=== PATIENT | female | born 1975 | race Caucasian/White ===

== ENCOUNTER 2020-05-04 15:38 | Emergency (ER) | payer OTHER ==
[2020-05-04] MEDS ORDERED: NORFLEX 100 MG100 MG PO (20:42)
[2020-05-04] MEDS ORDERED: LODINE CAP 300300 MG PO (20:42)
== END 2020-05-04 20:50 | disposition home or self-care (01) ==
LOC: ER1 15:38
DX: S20.212A Contusion of left front wall of thorax, initial encounter (principal); J45.909 Unspecified asthma, uncomplicated; F17.210 Nicotine dependence, cigarettes, uncomplicated; Z88.0 Allergy status to penicillin; W01.0XXA Fall on same level from slipping, tripping and stumbling without subsequent striking against object, initial encounter; Y92.009 Unspecified place in unspecified non-institutional (private) residence as the place of occurrence of the external cause
CPT/HCPCS: 71111; 99283

== ENCOUNTER 2020-05-18 17:57 | Emergency (ER) | payer OTHER ==
[~2020-05-18 17:57] MED LIST: LODINE CAP 300300 MG PO; NORFLEX 100 MG100 MG PO
[2020-05-18 19:26] LABS: BUN/CREATININE RATIO 16 (0-10)
[2020-05-18 19:58] LABS: HEMOGLOBIN 15.8 gm/dl (12.3-15.3); RED BLOOD COUNT 4.11 M/UL (4.00-5.10); WHITE BLOOD COUNT 13.5 K/UL (4.5-11.0)
[2020-05-18] MEDS ORDERED: BUSPIRONE HCL5 MG PO (21:15)
[2020-05-18] MEDS ORDERED: CETIRIZINE HCL10 MG PO (21:16)
[2020-05-18] MEDS ORDERED: ELAVIL 50 MG TA50 MG PO (21:17)
[2020-05-18] MEDS ORDERED: VISTARIL 50 MG50 MG PO (21:17)
[2020-05-18] MEDS ORDERED: SERTRALINE HCL100 MG PO (21:18)
[2020-05-18] MEDS ORDERED: OMEPRAZOLE40 MG PO (21:18)
[2020-05-18] MEDS ORDERED: MINIPRES CAP 2 M2 MG PO (21:19)
== END 2020-05-19 01:13 | disposition short-term general hospital (02) ==
LOC: ER1 17:57
PROVIDERS: Physician Assistant
DX: N39.0 Urinary tract infection, site not specified (principal); R56.9 Unspecified convulsions; Z88.0 Allergy status to penicillin; Z20.822 Contact with and (suspected) exposure to COVID-19
CPT/HCPCS: 0240U; 70450; 71045; 80053; 80307; 81001; 82550; 82553; 83605; 83690; 83735; 83874; 84439; 84443; 84484; 85025; 87040; 87077; 87086; 87186; 96365; 96375; 99285; G0480; J0461; J0696; J2060; J2250; J7030

== ENCOUNTER 2020-09-14 15:12 | Emergency (ER) | payer OTHER ==
[~2020-09-14 15:12] MED LIST changes: +BUSPIRONE HCL5 MG PO; +CETIRIZINE HCL10 MG PO; +ELAVIL 50 MG TA50 MG PO; +MINIPRES CAP 2 M2 MG PO; +OMEPRAZOLE40 MG PO; +SERTRALINE HCL100 MG PO; +VISTARIL 50 MG50 MG PO
== END 2020-09-14 18:40 | disposition left against medical advice (07) ==
LOC: ER1 15:12
DX: Z53.21 Procedure and treatment not carried out due to patient leaving prior to being seen by health care provider (principal)

== ENCOUNTER 2021-07-15 00:29 | Emergency (ER) | payer OTHER ==
[2021-07-15 01:55] LABS: HEMOGLOBIN 14.3 gm/dl (12.3-15.3); RED BLOOD COUNT 4.28 M/UL (4.00-5.10); WHITE BLOOD COUNT 8.3 K/UL (4.5-11.0)
[2021-07-15 02:16] LABS: BUN/CREATININE RATIO 24 (0-10)
[2021-07-15] MEDS ORDERED: POTASSIUM CHLO20 ME1 PO (04:14)
== END 2021-07-15 04:29 | disposition home or self-care (01) ==
LOC: ER1 00:29
PROVIDERS: Family Medicine
DX: R07.89 Other chest pain (principal); E87.6 Hypokalemia; F17.200 Nicotine dependence, unspecified, uncomplicated; Z88.0 Allergy status to penicillin
CPT/HCPCS: 71045; 80053; 82550; 82553; 83880; 84484; 85025; 85379; 93005; 99285

== ENCOUNTER 2021-07-21 21:55 | Emergency (ER) | payer OTHER ==
[~2021-07-21 21:55] MED LIST changes: +POTASSIUM CHLO20 ME1 PO
[2021-07-21 22:29] LABS: HEMOGLOBIN 14.5 gm/dl (12.3-15.3); RED BLOOD COUNT 4.36 M/UL (4.00-5.10); WHITE BLOOD COUNT 11.5 K/UL (4.5-11.0)
[2021-07-21 22:56] LABS: BUN/CREATININE RATIO 18 (0-10)
[2021-07-22] MEDS ORDERED: OMNICEF 300 MG300 MG PO (02:25)
== END 2021-07-22 02:45 | disposition home or self-care (01) ==
LOC: ER1 21:55
PROVIDERS: Physician Assistant
DX: N39.0 Urinary tract infection, site not specified (principal); K52.9 Noninfective gastroenteritis and colitis, unspecified; K76.0 Fatty (change of) liver, not elsewhere classified; E87.6 Hypokalemia; F10.10 Alcohol abuse, uncomplicated; F17.210 Nicotine dependence, cigarettes, uncomplicated
CPT/HCPCS: 80053; 81001; 83690; 84703; 85025; 99284; Q9967